=== PATIENT | female | born 1960 | race Caucasian/White ===

== ENCOUNTER → 2016-08-02 | Outpatient (CLI) | payer OTHER ==
[~2016-08-02] MED LIST: ANAS1TAB19 PO; BUPRTAB51 PO; CYCL10TA6 PO; CYCL5TAB PO; DULO-24 PO; MOME50SP5; NXM/40 PO; adderal
[2016-08-02 13:47] VITALS: BP 144/83; PULSE 74; TEMP 36.5; O2SAT 99
--- NOTE | 2016-08-02 14:27 | Radiation Oncology Follow-Up ---
Radiation Oncology Follow-Up Date of Visit Aug 02, 2016. 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 Status post left breast biopsy 08/14/2015 revealing invasive tubular carcinoma. 2. Lumpectomy/SLN - 09/17/2015 3. Status post completion of radiation therapy utilizing hypo-fractionation received 5130 cGy Last Edited By: Ilsa Cristobal on Nov 23, 2015 15:41 (Ilsa Cristobal PA-C) History of Present Illness Ms. Espinosa who recently had right breast pain. She did present her primary care physician who did order repeat imaging studies of the breast. The only radiographic finding was a 4 mm hypoechoic mass in the left breast at the 3 o' clock position which was found with targeted ultrasound only. The patient underwent a biopsy on 08/14/2015 which revealed invasive tubular carcinoma that was grade 1 and estrogen receptor positive, progesterone receptor negative and HER-2 negative. The patient was then seen by Dr. Jason Miguel who discussed [place] treatment options with the patient and eventually opted for a lumpectomy and sentinel lymph node biopsy. She underwent a lumpectomy and sentinel lymph node biopsy on 09/15/2015 which revealed invasive ductal carcinoma that measured 8 mm in greatest dimension. The tumor was noted to be tubular carcinoma. The tumor was grade 1 and there is no evidence of ductal carcinoma in situ noted. The margins were negative and the closest margin was 0.15 cm. The sentinel lymph node biopsy was also negative. Today we are seeing the patient in consultation to discuss the role of adjuvant radiation therapy. The patient is also seen Dr. Armaan Paniagua for medical oncology. Currently, the patient doing relatively well overall. She states she is healed up well from surgery. She has no complaints at this time. She did mention that she does have a sister who has triple negative breast cancer treated with a mastectomy and chemotherapy and radiation therapy and has been in remission for 4 years. She has no other family history of rest cancer, ovarian cancer or colon cancer. She underwent a CT simulation was found to be a candidate for hypo-fractionated therapy. (Ilsa Cristobal PA-C) Interim History She's been doing well over the past 6 months. The area of hyperpigmentation of the breast has resolved without difficulty. She denied any irritation of the skin. She denied any problems with dryness. She was seen by medical oncology and is now on anastrozole. She denies side effects. She has noted no masses or tenderness of the breast no change of the axilla. She is up-to-date on mammography. She had a mammogram 02/24/2016. This was at [facility]. There is no mammographic evidence of malignancy. An ultrasound was recommended for baseline postoperative evaluation. That was performed and showed probable scar tissue. 6 month follow-up was recommended. BI-RADS Category 3. She stated that she feels more comfortable to have mammography in [place] where this will be a digital diagnostic him a gram. She therefore scheduled her next mammogram for August and will be at the breast Center. (Ilsa Cristobal PA-C) Allergies Coded Allergies: Doxycycline (Verified Allergy, Severe, ANAPHYLAXIS, 09/15/15) Penicillins (Verified Allergy, Unknown, HIVES, 09/15/15) Uncoded Allergies: ALL CILLINS (Allergy, Mild, HIVES, THROAT SWELLING, 09/10/15) Home Medications Scheduled Anastrozole (Arimidex), 1 TAB PO DAILY Bupropion (Wellbutrin-Xl), 300 MG PO QAM Cyclobenzaprine Hcl (Flexeril), 10 MG PO HS Duloxetine HCl (Cymbalta), 80 MG PO DAILY Esomeprazole Magnesium (Nexium), 1 CAP PO DAILY Mometasone Furoate (Nasonex), 2 SPRAYS NA DAILY [adderal], 10 BID Scheduled PRN Cyclobenzaprine Hcl (Flexeril), 1 TAB PO TID PRN for aching Review of Systems Gastrointestinal: Symptoms: WNL Oral: Symptoms: No Problems Respiratory: Symptoms: WNL Urinary: Symptoms: WNL Skin: Symptoms: No Problems Breast: Right Upper Arm Measurement: 27.5 Right Mid Arm Measurement: 23.5 Right Wrist Measurement: 15.5 Left Upper Arm Measurement: 26.5 Left Mid Arm Measurement: 23.0 Left Wrist Measurement: 15.8 Arm Dominence: Right (Ilsa Cristobal PA-C) Physical Exam Vital Signs Date Time Temp Pulse Resp B/P Pulse Ox O2 Delivery O2 Flow Rate FiO2 08/02/16 13:47 36.5 74 18 144/83 99 Pain: Patient Pain Scale: 0 - 10 General Appearance: no apparent distress Eyes: normal inspection, EOMI ENT: normal ENT inspection, hearing grossly normal Neck: no adenopathy, thyroid normal Respiratory/Chest: lungs clear, no respiratory distress, no accessory muscle use Breast: Breast examination reveals well-healed incisions of the left breast. There are no masses or tenderness no axillary adenopathy. She has no skin retractions or nipple changes. Previous swelling at the nipple has resolved. Using the [place] score cosmesis she has an excellent outcome. The right breast showed no masses or tenderness and no axillary adenopathy. Cardiovascular: regular rate, rhythm, no gallop, no murmur Abdomen: non tender Skin: warm/dry Lymphatic: no adenopathy (Ilsa Cristobal PA-C) Additional Studies Mammography as reviewed above from [facility]. (Ilsa Cristobal PA-C) Assessment & Plan Plan: Continue mammography as scheduled. She'll have a mammogram in August. She continues on anastrozole. Continue regular follow-up with medical oncology. We asked her to return to our office in 1 year. She may call our office if she has any questions or concerns would be happy to see her. Patient was also seen and examined by Dr. Plunkett. (Ilsa Cristobal PA-C) I agree with note created by Ilsa Cristobal PA-C. I reviewed the patient's chart and information with her. I have examined and evaluated the patient. I reviewed relevant clinical information and answered the patient's and/or family' s questions. (Veeral. Plunkett MD) Total Time In Follow-Up I spent 15 minutes speaking to the patient performing examination. I spent 15 minutes reviewing information in completing this note. (Ilsa Cristobal PA-C) I spent 15 minutes examining and counseling the patient. (Veeral. Plunkett MD) Copy To Rashawn Felipe MD; Michael Pardo M.D. Problem Qualifiers (1) Breast cancer: Laterality: left
== END | disposition home or self-care (01) ==
LOC: C.ONC 13:33
PROVIDERS: ATTEND Radiology Radiation Oncology
DX: Z08 Encounter for follow-up examination after completed treatment for malignant neoplasm (principal); Z92.3 Personal history of irradiation; Z85.3 Personal history of malignant neoplasm of breast

== ENCOUNTER → 2016-08-24 | Outpatient (CLI) | payer OTHER ==
--- NOTE | 2016-08-24 15:31 | MAMMOGRAPHY REPORT ---
BILATERAL DIGITAL DIAGNOSTIC MAMMOGRAM TOMOSYNTHESIS WITH CAD: 08/24/2016 CLINICAL HISTORY: 56-year-old woman presents for bilateral mammography. She has a personal history of left breast cancer status post lumpectomy in August 2015. TECHNIQUE: Bilateral breast tomosynthesis in addition to standard 2D mammography was performed. Curr ent study was also evaluated with a Computer Aided Detection (CAD) system. COMPARISON: Comparison is made to exams dated: 09/15/2015 specimen, 09/15/2015 mammogram, 08/14/2015 ammogram - [facility], 01/09/2012 mammogram, 12/30/2010 mammogram, and 01/01/2010 enriqueta mogram. BREAST COMPOSITION: The tissue of both breasts is heterogeneously dense, which may obscure small ma sses. FINDINGS: A linear scar marker overlies the upper outer quadrant of the left breast, denoting the s kin surgical scar from prior lumpectomy. There are 2 benign-appearing calcifications in the anterio r left breast. No new suspicious mass, architectural distortion or cluster of microcalcifications i s seen. IMPRESSION: ACR-BI-RADS CATEGORY 3: PROBABLY BENIGN 1. Expected post therapeutic changes in the left breast, without mammographic evidence of malignancy bilaterally. Would recommend another short interval follow-up of the left breast in 6 months, to e nsure 18 months of stability post treatment for breast cancer. 2. Given the dense breasts and personal history of left breast cancer, would recommend additional s urveillance with breast MRI, which is more sensitive than screening ultrasound. These results and recommendations were discussed with the patient at the time of the exam. She tent atively scheduled the follow-up appointments prior to leaving the department. Approximately 10% of breast cancers are not detected with mammography. A negative mammographic repor t should not delay biopsy if a clinically suggestive mass is present. Gaye Elmore M.D. ay/:08/24/2016 12:37:42 Manager Management: Estella Hope, [facility] letter sent: Follow Up Recommended 3 BI-RADS Code: ACR-BI-RADS Category 3: Probably Benign
== END | disposition home or self-care (01) ==
LOC: C.MAMM 11:09
PROVIDERS: ATTEND Radiology Radiation Oncology
DX: Z85.3 Personal history of malignant neoplasm of breast (principal); Z08 Encounter for follow-up examination after completed treatment for malignant neoplasm

== ENCOUNTER → 2016-09-02 | Outpatient (CLI) | payer OTHER ==
[~2016-09-02] MED LIST changes: +GADAVIST IV PRN
--- NOTE | 2016-09-05 13:55 | MAMMOGRAPHY REPORT ---
BREAST MRI OF BOTH BREASTS : 09/02/2016 CLINICAL HISTORY: History of left breast cancer status post lumpectomy August 2015. COMPARISON: Comparison is made to exams dated: 08/24/2016 mammogram, 09/15/2015 mammogram, 08/14/2015 [facility], and 06/02/2014 mammogram. Technique: The patient was placed prone in a dedicated breast imaging coil. Precontrast axial T1-we ighted, axial T2-weighted fat saturation, and axial T1-weighted fat saturation images were obtained. After the administration of 6 mL of Gadavist IV contrast, sequential T1-weighted fat saturation im ages were obtained. Subtraction images were obtained of the dynamic contrast enhanced sequences, an d 3-D reformations were performed. The [employer] software was used for kinetic analysis. Findings: Right breast: There is mild background parenchymal enhancement. There is a 3 mm circumscribed enhan cing mass in the right 6:00 breast far inferiorly and posteriorly, which demonstrates corresponding T2 hyperintensity and has a T1 hyperintense central portion indicating a fatty hilum, and is consist ent with a benign intramammary lymph node (series 38831 image 92). There is an oval circumscribed 6 mm mass seen within the right central breast middle depth, which demonstrates no postcontrast enhan cement and is benign (series 501 image 65). There are no suspicious enhancing masses or areas of ab normal enhancement within the right breast. Left breast: There is mild background parenchymal enhancement. There are expected postsurgical demarco ges in the left lateral posterior breast from prior lumpectomy. There is an oval 11 mm mass in the left 3:30 breast posteriorly, which demonstrates T1 and T2 hyperintensity as well as a T2 hypointens e rim and no postcontrast enhancement, and is consistent with a small postsurgical hematoma (series 4 image 34). There are no suspicious enhancing masses or areas of abnormal enhancement seen within the left breast. There is no evidence of axillary adenopathy. The visualized extramammary soft tissues are unremarka ble. IMPRESSION: ACR BI-RADS CATEGORY 2: BENIGN Expected postsurgical changes in the left breast from prior lumpectomy, with no MRI evidence of georges gnancy in either breast. As recommended on the recent diagnostic mammogram report, recommend follow -up mammograms of the left breast 6 months. Also consider continuation with yearly screening breast MRI, due in 1 year. Lesia Tinsley M.D. ah/:09/03/2016 12:43:23 Radio Interference Investigator: commercial accountant, [facility] letter sent: Normal 1/2 BI-RADS Code: ACR BI-RADS Category 2: Benign
== END | disposition home or self-care (01) ==
LOC: C.MRI 12:15
PROVIDERS: ATTEND Radiology Radiation Oncology
DX: R92.2 Inconclusive mammogram (principal); C50.112 Malignant neoplasm of central portion of left female breast

== ENCOUNTER → 2017-08-25 | Outpatient (CLI) | payer OTHER ==
[~2017-08-25] MED LIST changes: +AMPH10TA2 PO; +AMPH20TA2 PO; +CALCTAB5 PO; -GADAVIST IV PRN; +MELATAB2 PO; +MULT-513 PO; +ZINC1CAP PO
[2017-08-25 11:17] VITALS: BP 123/81; PULSE 79; TEMP 36.4; O2SAT 100
--- NOTE | 2017-08-25 11:51 | Radiation Oncology Follow-Up ---
Radiation Oncology Follow-Up Date of Visit Aug 25, 2017. 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 Status post left breast biopsy 08/14/2015 revealing invasive tubular carcinoma. 2. Lumpectomy/SLN - 09/17/2015 3. Status post completion of radiation therapy utilizing hypo-fractionation received 5130 cGy Last Edited By: Ilsa Cristobal on Nov 23, 2015 15:41 History of Present Illness Ms. Schuler who recently had right breast pain. She did present her primary care physician who did order repeat imaging studies of the breast. The only radiographic finding was a 4 mm hypoechoic mass in the left breast at the 3 o' clock position which was found with targeted ultrasound only. The patient underwent a biopsy on 08/14/2015 which revealed invasive tubular carcinoma that was grade 1 and estrogen receptor positive, progesterone receptor negative and HER-2 negative. The patient was then seen by Dr. Jason Miguel who discussed [place] treatment options with the patient and eventually opted for a lumpectomy and sentinel lymph node biopsy. She underwent a lumpectomy and sentinel lymph node biopsy on 09/15/2015 which revealed invasive ductal carcinoma that measured 8 mm in greatest dimension. The tumor was noted to be tubular carcinoma. The tumor was grade 1 and there is no evidence of ductal carcinoma in situ noted. The margins were negative and the closest margin was 0.15 cm. The sentinel lymph node biopsy was also negative. Today we are seeing the patient in consultation to discuss the role of adjuvant radiation therapy. The patient is also seen Dr. Armaan Paniagua for medical oncology. Currently, the patient doing relatively well overall. She states she is healed up well from surgery. She has no complaints at this time. She did mention that she does have a sister who has triple negative breast cancer treated with a mastectomy and chemotherapy and radiation therapy and has been in remission for 4 years. She has no other family history of rest cancer, ovarian cancer or colon cancer. She underwent a CT simulation was found to be a candidate for hypo-fractionated therapy. Interim History She has been doing well over this past year. She noted an area that was somewhat different in August of last year and she underwent evaluation. This was negative for findings. She no longer feels that area in the inframammary fold that had been more prominent. She denies pain or tenderness. There is no change of the axilla. She has had follow-up studies including mammography on August 24, 2016 and MRIs of the breast on September 02, 2016. Allergies Coded Allergies: Doxycycline (Verified Allergy, Severe, ANAPHYLAXIS, 09/15/15) Penicillins (Verified Allergy, Unknown, HIVES, 09/15/15) Uncoded Allergies: ALL CILLINS (Allergy, Mild, HIVES, THROAT SWELLING, 09/10/15) Home Medications Scheduled Amphetamine-Dextroamphetamine 10MG (Adderall 10MG), 1 TAB PO DAILYBL Amphetamine-Dextroamphetamine 20MG (Adderall 20MG), 1 TAB PO DAILYBB Anastrozole (Arimidex), 1 TAB PO DAILY Bupropion (Wellbutrin-Xl), 300 MG PO QAM Calcium Carbonate (Caltrate 600), 1 TAB PO HS Melatonin (Melatonin Maximum Strengt), 6 MG PO HS Mometasone Furoate (Nasonex), 2 SPRAYS NA DAILY Multivitamins/Minerals (Mvi With Minerals), 1 TAB PO DAILY Zinc Sulfate (Zinc Sulfate), 220 MG PO DAILYBB Scheduled PRN Cyclobenzaprine Hcl (Flexeril), 1 TAB PO TID PRN for aching Review of Systems Gastrointestinal: Symptoms: Nausea GI Comments: " I need nexium again " Oral: Symptoms: No Problems Respiratory: Symptoms: WNL Other Respiratory: " I have some sinus drainage " Urinary: Symptoms: WNL Comments: " I drink a lot and now leak , has urgency " Skin: Symptoms: No Problems Breast: Right Upper Arm Measurement: 25.5 Right Mid Arm Measurement: 24.0 Right Wrist Measurement: 15.8 Left Upper Arm Measurement: 26.0 Left Mid Arm Measurement: 23.0 Left Wrist Measurement: 15.4 Arm Dominence: Right Patient Cosmetic Evaluation: Excellent Staff Cosmetic Evalaluation: Excellent Physical Exam Vital Signs Date Time Temp Pulse Resp B/P (MAP) Pulse Ox O2 Delivery O2 Flow Rate FiO2 08/25/17 11:17 36.4 79 16 123/81 100 Fatigue: None General Appearance: no apparent distress Eyes: normal inspection, EOMI ENT: normal ENT inspection, hearing grossly normal Neck: no adenopathy, thyroid normal Respiratory/Chest: lungs clear, no respiratory distress, no accessory muscle use Breast: Breast examination reveals well-healed incisions of the left breast. There are no masses or tenderness and no axillary adenopathy. She has no skin retractions or nipple changes. Using the [place] score cosmesis she has an excellent outcome. She has generalized fibrocystic changes. The right breast showed no masses or tenderness and no axillary adenopathy. She has generalized fibrocystic changes also on the right. Cardiovascular: regular rate, rhythm, no gallop, no murmur Neurologic/Psychiatric: no motor/sensory deficits, alert, normal mood/affect Skin: warm/dry Pain Management Patient Reports Pain: No Side: Bilateral Pain Location: None Patient Preferred Pain Scale: 0 - 10 Initial Pain Intensity: 0.0 Pain Management Plan She denies pain therefore requires no pain management. Laboratory Laboratory Results: not applicable Pathology Pathology Results: not applicable Imaging Imaging Studies: were reviewed, and pertinent findings noted below Imaging Comments Patient: GARY SCHULER [facility] Rec: [id number] Address1: [address] [place] [address] Address2: [facility] ID: [id number] Date: 1960 Sex: F Ref Phy: Bhanu Pérez D.O. Att Phy: Ilsa Cristobal PA-C Bonny Phy: Michael Pardo M.D. Inter Phy: Gaye Elmore MD [facility] Zip: [place] [address] SC: C.MAMM Report #: [id number] Corrective Therapy Aide Teacher: KAE Diagnosis: 6 MONTH F/U Service Date: 08/24/16 MNE: [id number] Ordering Dr: Ilsa Cristobal PA-C CC: Ilsa Cristobal PA-C CONF: DICTATED BY: Gaye Elmore MD MAMMOGRAPHY REPORT BILATERAL DIGITAL DIAGNOSTIC MAMMOGRAM TOMOSYNTHESIS WITH CAD: 08/24/2016 CLINICAL HISTORY: 56-year-old woman presents for bilateral mammography. She has a personal history of left breast cancer status post lumpectomy in August 2015. TECHNIQUE: Bilateral breast tomosynthesis in addition to standard 2D mammography was performed. Current study was also evaluated with a Computer Aided Detection (CAD) system. COMPARISON: Comparison is made to exams dated: 09/15/2015 specimen, 09/15/2015 mammogram, 08/14/2015 mammogram - [facility], 01/09/2012 mammogram, 12/30/2010 mammogram, and 01/01/2010 mammogram. BREAST COMPOSITION: The tissue of both breasts is heterogeneously dense, which may obscure small masses. FINDINGS: A linear scar marker overlies the upper outer quadrant of the left breast, denoting the skin surgical scar from prior lumpectomy. There are 2 benign-appearing calcifications in the anterior left breast. No new suspicious mass, architectural distortion or cluster of microcalcifications is seen. IMPRESSION: ACR-BI-RADS CATEGORY 3: PROBABLY BENIGN 1. Expected post therapeutic changes in the left breast, without mammographic evidence of malignancy bilaterally. Would recommend another short interval follow-up of the left breast in 6 months, to ensure 18 months of stability post treatment for breast cancer. 2. Given the dense breasts and personal history of left breast cancer, would recommend additional surveillance with breast MRI, which is more sensitive than screening ultrasound. These results and recommendations were discussed with the patient at the time of the exam. She tentatively scheduled the follow-up appointments prior to leaving the department. Approximately 10% of breast cancers are not detected with mammography. A negative mammographic report should not delay biopsy if a clinically suggestive mass is present. Gaye Elmore M.D. ay/:08/24/2016 12:37:42 Double Head Machine Operator: Estella Hope, [facility] letter sent: Follow Up Recommended 3 BI-RADS Code: ACR-BI-RADS Category 3: Probably Benign Dictated by: Gaye Elmore MD Signed by: Gaye Elmore MD Patient: GARY SCHULER [facility] Rec: [id number] Address1: [address] [place] [address] Address2: [employer] ID: [id number] Date: 1960 Sex: F Ref Phy: Ilsa Cristobal PA-C Att Phy: Ilsa Cristobal PA-C Bonny Phy: Michael Pardo M.D. Inter Phy: Lesia Tinsley MD [facility] Zip: [place] [address] SC: LevMRI Report #: [id number] Corrective Therapy Aide Teacher: CLAUDE Diagnosis: BREAST CA Service Date: 09/02/16 MNE: [id number] Ordering Dr: Ilsa Cristobal PA-C CC: Ilsa Cristobal PA-C CONF: DICTATED BY: Lesia Tinsley MD MAMMOGRAPHY REPORT BREAST MRI OF BOTH BREASTS : 09/02/2016 CLINICAL HISTORY: History of left breast cancer status post lumpectomy August 2015. COMPARISON: Comparison is made to exams dated: 08/24/2016 mammogram, 09/15/2015 mammogram, 08/14/2015 mammogram - [facility], and 06/02/2014 mammogram. Technique: The patient was placed prone in a dedicated breast imaging coil. Precontrast axial T1-weighted, axial T2-weighted fat saturation, and axial T1- weighted fat saturation images were obtained. After the administration of 6 mL of Gadavist IV contrast, sequential T1-weighted fat saturation images were obtained. Subtraction images were obtained of the dynamic contrast enhanced sequences, and 3-D reformations were performed. The [employer] software was used for kinetic analysis. Findings: Right breast: There is mild background parenchymal enhancement. There is a 3 mm circumscribed enhancing mass in the right 6:00 breast far inferiorly and posteriorly, which demonstrates corresponding T2 hyperintensity and has a T1 hyperintense central portion indicating a fatty hilum, and is consistent with a benign intramammary lymph node (series [id number] image 92). There is an oval circumscribed 6 mm mass seen within the right central breast middle depth, which demonstrates no postcontrast enhancement and is benign (series 501 image 65). There are no suspicious enhancing masses or areas of abnormal enhancement within the right breast. Left breast: There is mild background parenchymal enhancement. There are expected postsurgical changes in the left lateral posterior breast from prior lumpectomy. There is an oval 11 mm mass in the left 3:30 breast posteriorly, which demonstrates T1 and T2 hyperintensity as well as a T2 hypointense rim and no postcontrast enhancement, and is consistent with a small postsurgical hematoma (series 4 image 34). There are no suspicious enhancing masses or areas of abnormal enhancement seen within the left breast. There is no evidence of axillary adenopathy. The visualized extramammary soft tissues are unremarkable. IMPRESSION: ACR BI-RADS CATEGORY 2: BENIGN Expected postsurgical changes in the left breast from prior lumpectomy, with no MRI evidence of malignancy in either breast. As recommended on the recent diagnostic mammogram report, recommend follow-up mammograms of the left breast 6 months. Also consider continuation with yearly screening breast MRI, due in 1 year. Lesia Tinsley M.D. /:09/03/2016 12:43:23 Double Head Machine Operator: management accounts manager, [facility] letter sent: Normal 1/2 BI-RADS Code: ACR BI-RADS Category 2: Benign Dictated by: Lesia Tinsley MD Signed by: Lesia Tinsley MD Assessment & Plan Plan: Continue annual mammography as well as MRIs. Continue regular follow-up with Dr. Felipe and her primary care physician. She was seen and examined today by Dr. Plunkett. We asked her to return to our office in 1 year. She may call if she has any questions or concerns in the interim. Assessment & Plan (Attending) I agree with note created by Ilsa Cristobal PA-C. I reviewed the patient's chart and information with her. I have examined and evaluated the patient. I reviewed relevant clinical information and answered the patient's and/or family' s questions. RF MICROWAVE ENGINEER Total Time In Follow-Up I spent 20 minutes speaking to the patient in performing examination. I spent 15 minutes reviewing information and completing this note. AK Total Time (Attending) In Follow-Up I spent 15 minutes examining and counseling the patient. RF MICROWAVE ENGINEER Copy To Rashawn Felipe MD; Michael Pardo M.D.
== END | disposition home or self-care (01) ==
LOC: C.ONC 11:01
PROVIDERS: ATTEND Physician Assistant Medical
DX: Z08 Encounter for follow-up examination after completed treatment for malignant neoplasm (principal); Z92.3 Personal history of irradiation; Z85.3 Personal history of malignant neoplasm of breast